=== PATIENT | male | born 1950 | race Caucasian/White ===

== ENCOUNTER 2020-01-20 00:42 | Outpatient (CLI) | payer MEDICARE, SELFPAY ==
[2020-01-20 17:34] LABS: SARS-CoV-2 RNA PCR Negative
== END 2020-01-20 00:43 | disposition home or self-care (01) ==
LOC: ANHCOVIDDT 00:42
PROVIDERS: PCP Internal Medicine; Visit Provider Internal Medicine Gastroenterology
DX: Z01.818 Encounter for other preprocedural examination (principal); Z11.59 Encounter for screening for other viral diseases
CPT/HCPCS: 87635; C9803; U0003

== ENCOUNTER 2020-01-22 01:07 | Day surgery (SDC) | payer MEDICARE, SELFPAY ==
[2020-01-14 14:59] VITALS: BMI 31.8
[2020-01-22 07:58] VITALS: BP 167/75; PULSE 58; RESP 18; TEMP 36.4; O2SAT 100
[2020-01-22] MEDS: LACTATED RINGERS 1,000 ML 150 ML IV CONT (08:10)
--- NOTE | 2020-01-22 08:24 | P.PNAN_ITS ---
Anes - Initial Pre Proc Eval Procedure: Operation Date: 01/22/20 09:00 Proposed Procedures p Screening Colonoscopy - Abner Tillman MD Date/Time: 01/22/20 08:24 Surgeon: Abner Tillman MD Pre Op Diagnosis: Hx Colon Polyps Patient Data Age: 69 Gender: M Height: 1.75 m Weight: 96.4 kg Last Vital Signs Temp 36.4 C 01/22/20 07:58 Pulse 58 L 01/22/20 07:58 Resp 18 01/22/20 07:58 BP 167/75 H 01/22/20 07:58 Pulse Ox 100 01/22/20 07:58 Allergies Allergy/AdvReac Type Severity Reaction Status Date / Time No Known Allergies Allergy Mild Unverified 01/22/20 07:57 Home Medications Medication Instructions Recorded Confirmed Type losartan 50 mg tablet 50 mg PO DAILY #90 tablet 11/23/19 01/22/20 Rx naproxen sodium 220 mg PO BID 01/14/20 01/22/20 History Patient hx anesthesia problems: none Family hx anesthesia problems: none [facility] Past Medical History Medical History (Updated 01/21/20 @ 10:54 by Sheldon Ibrahim DO) Elevated liver enzymes Hypertension Sleep apnea CPAP Family History Family History (Updated 12/08/19 @ 10:05 by Rochelle Chau CMA) Father Family history of arthritis Diabetes mellitus Hypertension CHF (congestive heart failure) Family history of Alzheimer's disease Mother Family history of arthritis Family history of malignant neoplasm Diabetes mellitus, Onset Age: 79 Hypertension, Onset Age: 79 Social History Social History (Updated 12/08/19 @ 10:05 by Rochelle Chau [facility]) Smoking status: Never smoker Alcohol intake: current Substance use: never Gender identity (if verbalized by the patient): Male Sexual Orientation (if Verbalized by the Patient): Straight or Heterosexual Anes - Eval Final PreProcedure Day of Procedure 01/22/20 08:24 Patient weight: obese Heart: regular rate and rhythm Lungs: clear to auscultation and normal air movement Airway: Mallampati scale class III Neurological: alert and oriented Last oral intake: >/= 8 hours ASA classification: III Emergent: no Anesthetic plan: proceed Anesthesia type and monitoring: general GIVS and standard monitoring Informed Consent: The patient's anesthetic plan and its attendant risks and benefits were discussed with the patient/family/POA. Questions were solicited and answers provided to the satisfaction of the patient/family/POA.
--- NOTE | 2020-01-22 08:44 | WPDGICN ---
Assessment and Plan Assessment and plan (1) History of colon polyps: Code(s): Z86.010 - Personal history of colonic polyps Status: Acute Assessment and Plan: Screening colonoscopy advised because of patient's age patient also gives a he distant history of colon polyps. Plans for screening colonoscopy further recommendations will be given after endoscopy. GI Consult Note Consult date/time: 01/22/20 08:44 HPI: Abner Giang is a 69 year old male Seen in evaluation at the request of Dr. Syed. Patient has a history of colon polyps identified by colonoscopy 12 years ago. Most recent colonoscopy tender 11 years ago was unremarkable. His current weight appetite bowel movements are normal. He denies abdominal pain he has had no bleeding. Family history is noncontributory. Review of Systems Review of Systems: All systems reviewed & are unremarkable except as noted in HPI and below PMFSH Past Medical History Medical History Elevated liver enzymes Hypertension Sleep apnea CPAP Family History Family History Father Family history of arthritis Diabetes mellitus Hypertension CHF (congestive heart failure) Family history of Alzheimer's disease Mother Family history of arthritis Family history of malignant neoplasm Diabetes mellitus, Onset Age: 79 Hypertension, Onset Age: 79 Social History Social History Smoking status: Never smoker Alcohol intake: current Substance use: never Gender identity (if verbalized by the patient): Male Sexual Orientation (if Verbalized by the Patient): Straight or Heterosexual Meds Home Medications and Allergies Home Medications Medication Instructions Recorded Confirmed Type losartan 50 mg tablet 50 mg PO DAILY #90 tablet 11/23/19 01/22/20 Rx naproxen sodium 220 mg PO BID 01/14/20 01/22/20 History Allergies Allergy/AdvReac Type Severity Reaction Status Date / Time No Known Allergies Allergy Mild Unverified 01/22/20 07:57 Vital Signs Vital Signs - 24 hr 01/22/20 07:58 Temperature 36.4 C Pulse Rate 58 L Respiratory Rate 18 Blood Pressure 167/75 H Pulse Oximetry 100 Exam Narrative: Exam Narrative: Physical exam reveals patient to be alert. Vital signs stable. HEENT exam unremarkable. Lungs are clear to auscultation and percussion. Heart is without murmur or extra sounds. Abdominal exam bowel sounds are present soft nontender with no organomegaly. Digital external rectal exam normal.
[2020-01-22 09:48] VITALS: BP 132/65; PULSE 63; RESP 14; O2SAT 96
[2020-01-22 09:58] VITALS: BP 127/77; PULSE 64; RESP 14; O2SAT 96
[2020-01-22 10:08] VITALS: BP 137/74; PULSE 61; RESP 14; O2SAT 96
== END 2020-01-22 10:32 | disposition home or self-care (01) ==
PROVIDERS: PCP Internal Medicine; Visit Provider Internal Medicine Gastroenterology
PROC: 0DJD8ZZ Inspection of Lower Intestinal Tract, Via Natural or Artificial Opening Endoscopic (ICD-10-PCS; CPT 45378; principal; 2020-01-22 09:00)
DX: Z12.11 Encounter for screening for malignant neoplasm of colon (principal); K57.30 Diverticulosis of large intestine without perforation or abscess without bleeding; K64.8 Other hemorrhoids; Z86.010 Personal history of colon polyps; I10 Essential (primary) hypertension
CPT/HCPCS: G0105; 87635; C9803; J2704; J7120; U0003

== ENCOUNTER 2021-03-10 08:41 | Outpatient (CLI) | payer MEDICARE, SELFPAY ==
--- NOTE | ~2021-03-10 | US_ITS ---
EXAMINATION: US abdomen limited DATE: 03/10/2021 09:33 INDICATION: Right upper quadrant abdominal pain. TECHNIQUE: Multiple grayscale and Doppler ultrasound images of the abdomen were obtained. COMPARISON: None FINDINGS: The visualized portions of the head, body, and tail of the pancreas are normal. The liver i s normal without focal lesion. No liver surface nodularity. There is normal flow in main portal vein. The gallbladder is contracted and contains polyps measuring up to 6 mm, likely benign cholesterol po lyps that need no follow-up. No definite gallstones. There was no sonographic Hoang sign. The common duct is normal and measures 3 mm. IMPRESSION: 1. No etiology for the patient's symptoms. Reviewed, dictated and finalized at location A.
== END 2021-03-10 08:42 | disposition home or self-care (01) ==
LOC: ANHIMG 08:41
PROVIDERS: PCP Internal Medicine; Visit Provider Nurse Practitioner
DX: R10.11 Right upper quadrant pain (principal)
CPT/HCPCS: 76705

== ENCOUNTER 2021-03-17 09:48 | Outpatient (CLI) | payer MEDICARE, SELFPAY ==
--- NOTE | ~2021-03-17 | NM_ITS ---
EXAMINATION: NM hepatobiliary wo pharm DATE: 03/17/2021 13:34 INDICATION: Right upper quadrant abdominal pain. COMPARISON: Ultrasound 03/10/2021 TECHNIQUE: 4.7 mCi Tc-99m mebrofenin (Choletec) was administered intravenously. Scintigraphic images of the abdomen were obtained for one hour. Delayed images were obtained at 4 hours. FINDINGS: There is normal clearance of radiotracer from the blood pool. There is homogeneous tracer u ptake by the liver. Activity progresses to the bowel by 15 minutes. There is activity in the gallbla dder at 4 hours. IMPRESSION: 1. No evidence of acute cholecystitis. Reviewed, dictated and finalized at location B.
== END 2021-03-17 09:49 | disposition home or self-care (01) ==
LOC: ANHIMG 09:52
PROVIDERS: PCP Internal Medicine; Visit Provider Internal Medicine
DX: R10.11 Right upper quadrant pain (principal)
CPT/HCPCS: 78226; A9537

== ENCOUNTER 2023-01-11 11:24 | Outpatient (CLI) | payer MEDICARE, SELFPAY ==
[2023-01-11 16:30] LABS: Basophils Percent Auto 0.8 % (0.2-1.2); Eosinophils Absolute Auto 0.1 K/mm3 (0-0.3); Eosinophils Percent Auto 2.3 % (0-4.4); Hematocrit 45.3 % (42.0-52.0); Hemoglobin 14.3 g/dL (14.0-18.0); Immature Granulocyte Absolute 0.01 K/mm3 (0.00-0.031); Immature Granulocyte Percent A 0.2 % (0-0.5); Lymphocytes Absolute Auto 1.88 K/mm3 (0.9-3.2); Lymphocytes Percent Auto 35.7 % (18.3-44.2); Mean Corpuscular HGB Conc 31.6 g/dl (32-36); Mean Corpuscular Hemoglobin 29.1 pg (26-34); Mean Corpuscular Volume 92.1 fl (80-100); Mean Platelet Volume 11.1 fl (7.4-10.4); Monocytes Absolute Auto 0.4 K/mm3 (0.1-0.6); Neutrophils Absolute Auto 2.8 K/mm3 (1.3-6.7); Platelet Count Result 189 k/mm3 (150-375); Red Blood Count 4.92 M/mm3 (4.6-6.20); Red Cell Distribution Width 14.2 % (11.5-14.5); White Blood Count 5.3 K/mm3 (4.5-10.0)
[2023-01-11 16:43] LABS: Alanine Aminotransferase 32 U/L (6-50); Albumin Level 4.3 g/dL (3.5-5.1); Alkaline Phosphatase 68 U/L (38-126); Anion Gap 6 mmol/L (8-16); Aspartate Amino Transferase 45 U/L (17-59); Bilirubin,Total 0.7 mg/dL (0.2-1.3); Blood Urea Nitrogen 22 mg/dL (9-20); Calcium 8.6 mg/dL (8.4-10.2); Carbon Dioxide 27 mmol/L (22-30); Chloride 111 mmol/L (98-107); Cholesterol 110 mg/dL (0-200); Estimated Glomerular Filt Rate > 60; Glucose 100 mg/dL (65-110); HDL Direct 28 mg/dL; Potassium 4.4 mmol/L (3.4-5.0); Sodium 144 mmol/L (137-145); Triglycerides 185 mg/dL (<150)
[2023-01-11 16:56] LABS: LDL Cholesterol Direct 58 mg/dL
[2023-01-11 17:03] LABS: Microalbumin Urine Random 12.4 mg/L (0-16.7)
[2023-01-11 17:05] LABS: Creatinine Urine 155.7 mg/dL
[2023-01-11 17:12] LABS: Prostate Specific Antigen 1.4 ng/mL (< OR = 4.0)
== END 2023-01-11 11:25 | disposition home or self-care (01) ==
LOC: ANHGOSHLAB 11:26
PROVIDERS: PCP Internal Medicine; Visit Provider Nurse Practitioner
DX: E78.5 Hyperlipidemia, unspecified (principal); Z12.5 Encounter for screening for malignant neoplasm of prostate; I10 Essential (primary) hypertension; Z13.29 Encounter for screening for other suspected endocrine disorder
CPT/HCPCS: 36415; 80053; 80061; 82043; 84153; 85025; G0103

== ENCOUNTER 2024-03-19 11:19 | Outpatient (CLI) | payer MEDICARE, SELFPAY ==
[2024-03-19 13:32] LABS: Basophils Percent Auto 0.3 % (0.2-1.2); Eosinophils Absolute Auto 0.1 K/mm3 (0-0.3); Eosinophils Percent Auto 1.6 % (0-4.4); Hematocrit 43.5 % (42.0-52.0); Hemoglobin 13.5 g/dL (14.0-18.0); Immature Granulocyte Absolute 0.01 K/mm3 (0.00-0.031); Immature Granulocyte Percent A 0.2 % (0-0.5); Lymphocytes Absolute Auto 1.54 K/mm3 (0.9-3.2); Lymphocytes Percent Auto 24.6 % (18.3-44.2); Mean Corpuscular Volume 93.3 fl (80-100); Mean Platelet Volume 10.8 fl (7.4-10.4); Monocytes Absolute Auto 0.5 K/mm3 (0.1-0.6); Monocytes Percent Auto 7.2 % (2.6-8.5); Neutrophils Absolute Auto 4.1 K/mm3 (1.3-6.7); Neutrophils Percent Auto 66.1 % (45.5-73.1); Platelet Count Result 199 k/mm3 (150-375); Red Blood Count 4.66 M/mm3 (4.6-6.20); Red Cell Distribution Width 13.7 % (11.5-14.5); White Blood Count 6.3 K/mm3 (4.5-10.0)
[2024-03-19 14:09] LABS: Alanine Aminotransferase 23 U/L (6-50); Albumin Level 4.1 g/dL (3.5-5.1); Alkaline Phosphatase 59 U/L (38-126); Anion Gap 7 mmol/L (4-12); Aspartate Amino Transferase 44 U/L (17-59); Bilirubin,Total 0.8 mg/dL (0.2-1.3); Blood Urea Nitrogen 19 mg/dL (9-20); Calcium 8.7 mg/dL (8.4-10.2); Carbon Dioxide 29 mmol/L (22-30); Chloride 105 mmol/L (98-107); Cholesterol 127 mg/dL (0-200); Estimated Glomerular Filt Rate > 60; Glucose 101 mg/dL (65-110); HDL Direct 30 mg/dL; Sodium 141 mmol/L (137-145); Triglycerides 203 mg/dL (<150)
[2024-03-19 14:20] LABS: LDL Cholesterol Direct 60 mg/dL
[2024-03-19 14:40] LABS: Prostate Specific Antigen 1.8 ng/mL (< OR = 4.0)
== END 2024-03-19 11:20 | disposition home or self-care (01) ==
LOC: ANHGOSHLAB 11:20
PROVIDERS: PCP Internal Medicine; Visit Provider Nurse Practitioner
DX: E78.5 Hyperlipidemia, unspecified (principal); I10 Essential (primary) hypertension; Z12.5 Encounter for screening for malignant neoplasm of prostate; Z13.228 Encounter for screening for other metabolic disorders
CPT/HCPCS: 36415; 80053; 80061; 84153; 85025; G0103

== ENCOUNTER 2024-11-11 00:20 | Day surgery (SDC) | payer MEDICARE, SELFPAY ==
[2024-11-10 08:44] VITALS: BMI 27.8
[2024-11-11 06:48] VITALS: BMI 27.1
[2024-11-11 06:50] VITALS: BP 158/79; PULSE 78; RESP 20; TEMP 36.3; O2SAT 99
[2024-11-11] MEDS: LACTATED RINGERS 1,000 ML 150 ML IV CONT (06:51)
--- NOTE | 2024-11-11 07:28 | WPDANESEPPF ---
Anes - Initial Pre Proc Eval Procedure: Operation Date: 11/11/24 08:00 Proposed Procedures p Screening Colonoscopy - Derek Ayoub MD Date/Time: 11/11/24 07:28 Surgeon: Derek Ayoub MD Pre Op Diagnosis: Hx of polyps Patient Data Age: 74 Gender: M Height: 1.73 m Weight: 81 kg Last Vital Signs Temp 36.3 C L 11/11/24 06:50 Pulse 78 11/11/24 06:50 Resp 20 11/11/24 06:50 BP 158/79 H 11/11/24 06:50 Pulse Ox 99 11/11/24 06:50 O2 Del Method Room Air 11/11/24 06:50 Allergies Allergy/AdvReac Type Severity Reaction Status Date / Time No Known Allergies Allergy Mild Verified 11/11/24 06:44 Home Medications ?Medication ?Instructions ?Recorded ?Confirmed ?Type ascorbic acid (vitamin C) 100 mg PO DAILY 12/08/20 11/11/24 History aspirin 81 mg tablet,delayed 81 mg PO DAILY 12/08/20 11/11/24 History release cetirizine 10 mg capsule (Zyrtec) 10 mg PO DAILY PRN Allergies 12/08/20 11/10/24 History multivitamin 1 tablet PO DAILY 12/08/20 11/11/24 History vitamin B complex (B 1 tablet PO DAILY 12/08/20 11/11/24 History Complex-Vitamin B12 tablet) omeprazole magnesium 20 mg 20 mg PO DAILY 12/20/21 11/11/24 History tablet,delayed release ibuprofen 200 mg tablet 400 mg PO BID 01/08/23 11/10/24 History naproxen sodium 220 mg capsule 220 mg PO DAILY 01/08/23 11/11/24 History atorvastatin 10 mg tablet See Rx Instructions .Route 09/24/24 11/11/24 Rx .COMPLEX #90 tabs losartan 50 mg tablet See Rx Instructions .Route 10/19/24 11/11/24 Rx .COMPLEX #90 tabs Patient hx anesthesia problems: none Family hx anesthesia problems: none Results Review: All pre-operative results and documents have been reviewed as part of the pre-operative evaluation. [facility] Past Medical History Medical History Obesity Hypertension Sleep apnea CPAP Elevated liver enzymes Surgical History Surgical History H/O wrist surgery (~1997) History of elbow surgery left 1989' History of carpal tunnel release History of back surgery (~2007) lumbar back surgery x 2 History of shoulder surgery (~2022) right x4 H/O hernia repair (~2009) x2 History of knee surgery (~2019) left knee x4 H/O neck surgery (~1999) Family History Family History Father Family history of arthritis Diabetes mellitus Hypertension CHF (congestive heart failure) Family history of Alzheimer's disease Mother Family history of arthritis Family history of malignant neoplasm Diabetes mellitus, Onset Age: 79 Hypertension, Onset Age: 79 Social History Social History Smoking status: Never smoker Alcohol intake: current Alcohol use details: rarely Substance use: never Do You Feel Safe in your Home?: Yes Lack of Transportation: No Lack of Food: Never True Current Housing: I Have Housing Concerned About Future Housing: No Difficulty Paying Gas/Electric Bills: No Difficulty Paying for Meds: No Currently Unemployed: No Education: Bachelor's Degree Difficulty w/ Childcare or Family Care: No Living arrangements: with family Gender identity (if verbalized by the patient): Male Sexual Orientation (if Verbalized by the Patient): Straight or Heterosexual Spiritual care concerns: No Anes - Eval Final PreProcedure Day of Procedure 11/11/24 07:28 Patient weight: overweight Heart: regular rate and rhythm Lungs: clear to auscultation Airway: Mallampati scale class IV and special considerations poor opening Neurological: alert and oriented Last oral intake: >/= 8 hours ASA classification: III Emergent: no Anesthetic plan: proceed Anesthesia type and monitoring: general GIVS and standard monitoring Results Review: All pre-operative results and documents have been reviewed as part of the pre-operative evaluation. Informed Consent: The patient's anesthetic plan and its attendant risks and benefits were discussed with the patient/family/POA. Questions were solicited and answers provided to the satisfaction of the patient/family/POA.
--- NOTE | 2024-11-11 07:59 | PM.HPGS ---
History of Present Illness History of Present Illness Consent: Risks, benefits, and alternatives have been discussed and questions answered. Patient agrees to proceed with procedure. Chief complaint: Hx of polyps Narrative: Abner Giang is a 74 year old male with last colonoscopy 2019, had polyps in the past Review of Systems Review of Systems: All systems reviewed & are unremarkable except as noted in HPI and below PMFSH Past Medical History Medical History Obesity Hypertension Sleep apnea CPAP Elevated liver enzymes Surgical History Surgical History H/O wrist surgery (~1997) History of elbow surgery left 1989' History of carpal tunnel release 1989' History of back surgery (~2007) lumbar back surgery x 2 History of shoulder surgery (~2022) right x4 H/O hernia repair (~2009) x2 History of knee surgery (~2019) left knee x4 H/O neck surgery (~1999) Family History Family History Father Family history of arthritis Diabetes mellitus Hypertension CHF (congestive heart failure) Family history of Alzheimer's disease Mother Family history of arthritis Family history of malignant neoplasm Diabetes mellitus, Onset Age: 79 Hypertension, Onset Age: 79 Social History Social History Smoking status: Never smoker Alcohol intake: current Alcohol use details: rarely Substance use: never Do You Feel Safe in your Home?: Yes Lack of Transportation: No Lack of Food: Never True Current Housing: I Have Housing Concerned About Future Housing: No Difficulty Paying Gas/Electric Bills: No Difficulty Paying for Meds: No Currently Unemployed: No Education: Bachelor's Degree Difficulty w/ Childcare or Family Care: No Living arrangements: with family Gender identity (if verbalized by the patient): Male Sexual Orientation (if Verbalized by the Patient): Straight or Heterosexual Spiritual care concerns: No Meds Home Medications and Allergies Home Medications ?Medication ?Instructions ?Recorded ?Confirmed ?Type ascorbic acid (vitamin C) 100 mg PO DAILY 12/08/20 11/11/24 History aspirin 81 mg tablet,delayed 81 mg PO DAILY 12/08/20 11/11/24 History release cetirizine 10 mg capsule (Zyrtec) 10 mg PO DAILY PRN Allergies 12/08/20 11/10/24 History multivitamin 1 tablet PO DAILY 12/08/20 11/11/24 History vitamin B complex (B 1 tablet PO DAILY 12/08/20 11/11/24 History Complex-Vitamin B12 tablet) omeprazole magnesium 20 mg 20 mg PO DAILY 12/20/21 11/11/24 History tablet,delayed release ibuprofen 200 mg tablet 400 mg PO BID 01/08/23 11/10/24 History naproxen sodium 220 mg capsule 220 mg PO DAILY 01/08/23 11/11/24 History atorvastatin 10 mg tablet See Rx Instructions .Route 09/24/24 11/11/24 Rx .COMPLEX #90 tabs losartan 50 mg tablet See Rx Instructions .Route 10/19/24 11/11/24 Rx .COMPLEX #90 tabs Allergies Allergy/AdvReac Type Severity Reaction Status Date / Time No Known Allergies Allergy Mild Verified 11/11/24 06:44 Vital Signs Vital Signs - 24 hr 11/11/24 06:50 Temperature 97.3 F L Pulse Rate 78 Respiratory Rate 20 Blood Pressure 158/79 H Pulse Oximetry 99 Oxygen Delivery Room Air Exam Const: General: comfortable and no acute distress HENMT: Face/Nose/Sinus: Normal nares present Eyes: General: appearance normal, both eyes and all related structures Neck: Neck: no JVD Resp: Auscultation: clear to auscultation bilaterally Cardio: Rate: regular rate Rhythm: regular rhythm GI: Inspection: non-distended GI Palp: Yes Soft to palpation Skin: General skin exam: normal color Neuro: General: gait normal Speech: normal speech Extrem: General: normal to inspection Psych: Mental Status: mental status grossly normal Assessment and Plan Assessment and plan (1) History of colon polyps: Code(s): Z86.010 - Personal history of colon polyps Status: Acute Assessment and Plan: colonoscopy
[2024-11-11 08:22] VITALS: BP 101/57; PULSE 65; RESP 12; O2SAT 98
[2024-11-11 08:32] VITALS: BP 110/60; PULSE 62; RESP 13; O2SAT 97
[2024-11-11 08:42] VITALS: BP 140/71; PULSE 64; RESP 14; O2SAT 98
== END 2024-11-11 08:49 | disposition home or self-care (01) ==
PROVIDERS: PCP Internal Medicine; Referring Provider Physician Assistant; Visit Provider Internal Medicine Gastroenterology
PROC: 0DJD8ZZ Inspection of Lower Intestinal Tract, Via Natural or Artificial Opening Endoscopic (ICD-10-PCS; CPT 45378; principal; 2024-11-11 08:00)
DX: Z12.11 Encounter for screening for malignant neoplasm of colon (principal); K63.5 Polyp of colon; K57.30 Diverticulosis of large intestine without perforation or abscess without bleeding; K64.8 Other hemorrhoids
CPT/HCPCS: 45380; 88305; J2003; J2704; J7120

== ENCOUNTER 2025-02-23 15:59 | Emergency (ER) | payer MEDICARE, SELFPAY ==
--- NOTE | 2025-02-23 16:01 | ED_ITS ---
HPI - Eye Problem General Stated complaint: Clogged Ear Source: patient and RN notes reviewed Mode of arrival: ambulatory Limitations: no limitations Related Data Home Medications ?Medication ?Instructions ?Recorded ?Confirmed ?Last Taken ?Type ascorbic acid (vitamin C) 100 mg PO DAILY 12/08/20 11/11/24 11/10/24 History aspirin 81 mg tablet,delayed 81 mg PO DAILY 12/08/20 11/11/24 11/10/24 History release cetirizine 10 mg capsule (Zyrtec) 10 mg PO DAILY PRN Allergies 12/08/20 11/10/24 Unknown History multivitamin 1 tablet PO DAILY 12/08/20 11/11/24 11/10/24 History vitamin B complex (B 1 tablet PO DAILY 12/08/20 11/11/24 11/10/24 History Complex-Vitamin B12 tablet) omeprazole magnesium 20 mg 20 mg PO DAILY 12/20/21 11/11/24 11/10/24 History tablet,delayed release ibuprofen 200 mg tablet 400 mg PO BID 01/08/23 11/10/24 Unknown History naproxen sodium 220 mg capsule 220 mg PO DAILY 01/08/23 11/11/24 11/10/24 History Allergies Allergy/AdvReac Type Severity Reaction Status Date / Time No Known Allergies Allergy Mild Verified 11/11/24 06:44 Review of Systems Review of Systems: CONSTITUTIONAL: Denies malaise, chills, sweats, or fever. EYES: Denies visual changes. Reports redness, irritation, discharge. ENT: Denies rhinorrhea, congestion, sinus pain, otalgia or sore throat. SKIN: Denies rash or itching. NEUROLOGIC: Denies numbness, weakness, or headache. PSYCHIATRIC: Denies anxiety or depression. All systems reviewed & are unremarkable except as noted in HPI and below PMFSH Past Medical History Medical History Obesity Hypertension Sleep apnea CPAP Elevated liver enzymes Surgical History Surgical History H/O wrist surgery (~1997) History of elbow surgery left 1989' History of carpal tunnel release 1989' History of back surgery (~2007) lumbar back surgery x 2 History of shoulder surgery (~2022) right x4 H/O hernia repair (~2009) x2 History of knee surgery (~2019) left knee x4 H/O neck surgery (~1999) Family History Family History Father Family history of arthritis Diabetes mellitus Hypertension CHF (congestive heart failure) Family history of Alzheimer's disease Mother Family history of arthritis Family history of malignant neoplasm Diabetes mellitus, Onset Age: 79 Hypertension, Onset Age: 79 Social History Social History Smoking status: Never smoker Alcohol intake: current Alcohol use details: rarely Substance use: never Do You Feel Safe in your Home?: Yes Lack of Transportation: No Lack of Food: Never True Current Housing: I Have Housing Concerned About Future Housing: No Difficulty Paying Gas/Electric Bills: No Difficulty Paying for Meds: No Currently Unemployed: No Education: Bachelor's Degree Difficulty w/ Childcare or Family Care: No Living arrangements: with family Gender identity (if verbalized by the patient): Male Sexual Orientation (if Verbalized by the Patient): Straight or Heterosexual Spiritual care concerns: No Comments At time of signature, agree with nursing past medical, surgical, social and family history. There is no relevant family history pertinent to the presenting complaint Exam Narrative: GENERAL: Well-appearing, well-nourished, and in no acute distress. HEAD: Normocephalic, atraumatic. EYES: PERRLA, sclera clear, and EOMI. No nystagmus. Bilateral conjunctivae injected. Upper and lower eyelid unremarkable, no periorbital edema noted ENT: Nares clear, turbinates pink, no rhinorrhea or epistaxis. Mucous membranes moist. TM pearly ceja with sharp light reflex bilaterally; no tragal tenderness. NECK: Supple. CHEST: No respiratory distress. Speaks in full sentences. HEART: Regular rate and rhythm. SKIN: Warm, dry, no visible rash. NEURO: Alert and oriented x3. PSYCH: Normal mood and affect Course Course Emergency Course: Patient is aware of diagnosis, understands and agrees to treatment plan. Antic ipatory guidance given. Patient agrees to follow-up as directed and is aware of reasons to seek care at the emergency department. Portions of this record may have been created with voice recognition software Level of Care: Express Care Visit Vital Signs Vital signs: Reviewed. [facility] - Eye Problem MDM Narrative Medical decision making narrative: Consideration of the following conditions may be warranted for the presenting problem, they are not final diagnoses: Bacterial conjunctivitis, allergic conjunctivitis, viral conjunctivitis, foreign body, blepharitis, chalazion, hordeolum, corneal abrasion, preseptal cellulitis, orbital cellulitis. No evidence of proptosis, ophthalmoplegia, vision loss, pain with eye movement. Exam findings show no acute concerns or changes; patient is non-toxic appearing and is in no distress. Patient is appropriate for outpatient treatment and follow-up. Critical Care Time Critical Care Time Critical Care Time: No Discharge Plan Discharge Patient Language: Spanish Prescriptions: No Action ascorbic acid (vitamin C) Granules 100 mg PO DAILY vitamin B complex [B Complex-Vitamin B12] Tablet 1 tablet PO DAILY multivitamin Tablet 1 tablet PO DAILY Zyrtec 10 mg capsule 10 mg PO DAILY PRN (Reason: Allergies) aspirin 81 mg tablet,delayed release (DR/EC) 81 mg PO DAILY ibuprofen 200 mg tablet 400 mg PO BID omeprazole magnesium 20 mg tablet,delayed release (DR/EC) 20 mg PO DAILY atorvastatin 10 mg tablet See Rx Instructions .ROUTE .COMPLEX Qty: 90 3RF Dose Instruction: TAKE 1 TABLET BY MOUTH EVERY NIGHT AT BEDTIME Rx Instructions: TAKE 1 TABLET BY MOUTH EVERY NIGHT AT BEDTIME naproxen sodium 220 mg capsule 220 mg PO DAILY losartan 50 mg tablet See Rx Instructions .ROUTE .COMPLEX Qty: 90 1RF Dose Instruction: TAKE 1 TABLET BY MOUTH DAILY Rx Instructions: TAKE 1 TABLET BY MOUTH DAILY Follow-up/Referrals: Khurram Syed, [Primary Care Provider] -
[2025-02-23 16:13] VITALS: BP 150/68; PULSE 69; RESP 16; TEMP 36.6; O2SAT 99
--- NOTE | 2025-02-23 16:24 | ED.EAR ---
HPI - Ear Problem General Chief complaint: Ear Stated complaint: Clogged Ear Time Seen by Provider: 02/23/25 16:25 Source: patient and RN notes reviewed Mode of arrival: ambulatory Limitations: no limitations History of Present Illness HPI Narrative: 74-year-old male presents with concern for low right ear fullness, decreased hearing. He reports several days of symptoms. He reports he has had a month long history of sinus congestion and drainage. He denies fever, aches, chills, sweats. Denies drainage from the ear. MD Complaint: ear pain Related Data Home Medications ?Medication ?Instructions ?Recorded ?Confirmed ?Last Taken ?Type ascorbic acid (vitamin C) 100 mg PO DAILY 12/08/20 11/11/24 11/10/24 History aspirin 81 mg tablet,delayed 81 mg PO DAILY 12/08/20 11/11/24 11/10/24 History release cetirizine 10 mg capsule (Zyrtec) 10 mg PO DAILY PRN Allergies 12/08/20 11/10/24 Unknown History multivitamin 1 tablet PO DAILY 12/08/20 11/11/24 11/10/24 History vitamin B complex (B 1 tablet PO DAILY 12/08/20 11/11/24 11/10/24 History Complex-Vitamin B12 tablet) omeprazole magnesium 20 mg 20 mg PO DAILY 12/20/21 11/11/24 11/10/24 History tablet,delayed release ibuprofen 200 mg tablet 400 mg PO BID 01/08/23 11/10/24 Unknown History naproxen sodium 220 mg capsule 220 mg PO DAILY 01/08/23 11/11/24 11/10/24 History fluconazole 100 mg tablet mg 02/23/25 Unknown History lorazepam 0.5 mg tablet mg 02/23/25 Unknown History prochlorperazine maleate 10 mg mg 02/23/25 Unknown History tablet Allergies Allergy/AdvReac Type Severity Reaction Status Date / Time No Known Allergies Allergy Mild Verified 02/23/25 16:03 Review of Systems Review of Systems: CONSTITUTIONAL: Denies malaise, chills, sweats, or fever. EYES: Denies visual changes, redness, or discharge. ENT: Reports rhinorrhea, congestion. Denies sinus pain and sore throat. Reports right ear fullness, decreased hearing CARDIOVASCULAR: Denies chest pain, palpitations, or edema. RESPIRATORY: Denies cough. Denies dyspnea. GASTROINTESTINAL: Denies abdominal pain, nausea, vomiting, diarrhea SKIN: Denies rash or itching. MUSCULOSKELETAL: Denies myalgia. NEUROLOGIC: Denies headache. All systems reviewed & are unremarkable except as noted in HPI and below PMFSH Past Medical History Medical History Obesity Hypertension Sleep apnea CPAP Elevated liver enzymes Surgical History Surgical History H/O wrist surgery (~1997) History of elbow surgery left History of carpal tunnel release History of back surgery (~2007) lumbar back surgery x 2 History of shoulder surgery (~2022) right x4 H/O hernia repair (~2009) x2 History of knee surgery (~2019) left knee x4 H/O neck surgery (~1999) Family History Family History Father Family history of arthritis Diabetes mellitus Hypertension CHF (congestive heart failure) Family history of Alzheimer's disease Mother Family history of arthritis Family history of malignant neoplasm Diabetes mellitus, Onset Age: 79 Hypertension, Onset Age: 79 Social History Social History Smoking status: Never smoker Alcohol intake: current Alcohol use details: rarely Substance use: never Do You Feel Safe in your Home?: Yes Lack of Transportation: No Lack of Food: Never True Current Housing: I Have Housing Concerned About Future Housing: No Difficulty Paying Gas/Electric Bills: No Difficulty Paying for Meds: No Currently Unemployed: No Education: Bachelor's Degree Difficulty w/ Childcare or Family Care: No Living arrangements: with family Gender identity (if verbalized by the patient): Male Sexual Orientation (if Verbalized by the Patient): Straight or Heterosexual Spiritual care concerns: No Comments At time of signature, agree with nursing past medical, surgical, social and family history. There is no relevant family history pertinent to the presenting complaint Exam Narrative: GENERAL: Well-appearing, well-nourished, and in no acute distress. HEAD: Normocephalic EYES: PERRLA, conjunctivae clear ENT: Nares clear, turbinates edematous, clear discharge. Mucous membranes moist. Left TM pearly ceja with sharp light reflex, right TM erythematous and bulging; no tragal tenderness, EAC unremarkable with no wax buildup. No post or pre-auricular erythema, induration, or warmth noted. Oropharynx not erythematous without lesions. Tonsils not enlarged and without exudate, no drooling, no hoarseness, no trismus, uvula midline. NECK: Supple. No lymphadenopathy CHEST: Clear to auscultation, breath sounds equal. No wheezing, rhonchi, rales, or stridor. No respiratory distress, speaks in full sentences. HEART: Regular rate and rhythm. No murmur heard. SKIN: Warm, dry, no rash. NEURO: Alert and oriented x3. PSYCH: Normal mood and affect Course Course Emergency Course: Patient is aware of diagnosis, understands and agrees to treatment plan. Anticipatory guidance given. Patient agrees to follow-up as directed and is aware of reasons to seek care at the emergency department. Portions of this record may have been created with voice recognition software Level of Care: Express Care Visit Vital Signs Vital signs: Vital Signs Temperature 98 F 02/23/25 16:13 Pulse Rate 69 02/23/25 16:13 Respiratory Rate 16 02/23/25 16:13 Blood Pressure 150/68 H 02/23/25 16:13 Pulse Oximetry 99 02/23/25 16:13 Temperature 98 F 02/23/25 16:13 Pulse Rate 69 02/23/25 16:13 Respiratory Rate 16 02/23/25 16:13 Blood Pressure 150/68 H 02/23/25 16:13 Pulse Oximetry 99 02/23/25 16:13 Reviewed. Medical Decision Making MDM Narrative Medical decision making narrative: I evaluated this in the [facility] care. History is obtained from patient who is an independent historian and physical exam was performed.? Available medical records were reviewed. ? Exam findings and relevant testing show no acute concerns or changes; patient is non-toxic appearing and is in no distress. Differential diagnosis considered: Art virus, strep pharyngitis, allergic rhinitis, upper respiratory tract infection, sinusitis, rhinosinusitis, nasopharyngitis. viral pharyngitis, otitis media, otitis externa, otitis effusion, pre/post auricular cellulitis, mastoiditis, cerumen impaction, foreign body. Exam findings show no acute concerns or changes; patient is non-toxic appearing and is in no distress. Patient is appropriate for outpatient treatment and follow-up. ? Differential diagnosis and treatment plan were discussed with the patient. Patient agrees with discussion and after shared medical decision making agrees with plan of care. All questions were answered to the patient's satisfaction. Patient is appropriate for outpatient treatment and follow-up. Vital Signs Vital Signs: Vital Signs Temperature 98 F 02/23/25 16:13 Pulse Rate 69 02/23/25 16:13 Respiratory Rate 16 02/23/25 16:13 Blood Pressure 150/68 H 02/23/25 16:13 Pulse Oximetry 99 02/23/25 16:13 Temperature 98 F 02/23/25 16:13 Pulse Rate 69 02/23/25 16:13 Respiratory Rate 16 02/23/25 16:13 Blood Pressure 150/68 H 02/23/25 16:13 Pulse Oximetry 99 02/23/25 16:13 Critical Care Time Critical Care Time Critical Care Time: No Discharge Plan Discharge Clinical Impression: Otitis media, Sinusitis Patient Disposition: Home Condition: Stable Instructions: Antibiotic Form, Sinusitis (ED), Ear Infection (ED) Additional Instructions: Take antibiotics as directed. Recommend antihistamine such as Benadryl at night time and Zyrtec or Gayathri during the day until symptoms improve Pseudoephedrine per package directions Flonase nasal spray, 2 sprays in each nostril once daily until symptoms improve Also, recommend symptomatic treatment includes: rest, fluids, and increase humidity of the air at home. Recommend Acetaminophen as directed on the bottle to reduce fever, pain Please schedule a follow-up visit with your personal physician for further evaluation and treatment within 3-5days. If your symptoms persist, change or worsen significantly before you can contact your personal physician then please, without delay, go to the emergency department for further evaluation. Patient Language: Khmer Prescriptions: New pseudoephedrine HCl [12 Hour Decongestant] 120 mg tablet extended release 120 mg PO Q12H PRN (Reason: nasal congestion) Qty: 20 0RF amoxicillin-pot clavulanate 875-125 mg tablet 1 tablet PO Q12H 10 Days Qty: 20 0RF No Action fluconazole 100 mg tablet prochlorperazine maleate 10 mg tablet lorazepam 0.5 mg tablet ascorbic acid (vitamin C) Granules 100 mg PO DAILY vitamin B complex [B Complex-Vitamin B12] Tablet 1 tablet PO DAILY multivitamin Tablet 1 tablet PO DAILY Zyrtec 10 mg capsule 10 mg PO DAILY PRN (Reason: Allergies) aspirin 81 mg tablet,delayed release (DR/EC) 81 mg PO DAILY ibuprofen 200 mg tablet 400 mg PO BID omeprazole magnesium 20 mg tablet,delayed release (DR/EC) 20 mg PO DAILY atorvastatin 10 mg tablet See Rx Instructions .ROUTE .COMPLEX Qty: 90 3RF Dose Instruction: TAKE 1 TABLET BY MOUTH EVERY NIGHT AT BEDTIME Rx Instructions: TAKE 1 TABLET BY MOUTH EVERY NIGHT AT BEDTIME naproxen sodium 220 mg capsule 220 mg PO DAILY losartan 50 mg tablet See Rx Instructions .ROUTE .COMPLEX Qty: 90 1RF Dose Instruction: TAKE 1 TABLET BY MOUTH DAILY Rx Instructions: TAKE 1 TABLET BY MOUTH DAILY Follow-up/Referrals: Khurram Syed DO [Primary Care Provider] - Time of Disposition: 16:31
== END 2025-02-23 16:31 | disposition home or self-care (01) ==
PROVIDERS: Emergency Provider Nurse Practitioner; PCP Internal Medicine
DX: H66.91 Otitis media, unspecified, right ear (principal); J32.9 Chronic sinusitis, unspecified; I10 Essential (primary) hypertension; E66.9 Obesity, unspecified; Z68.24 Body mass index [BMI] 24.0-24.9, adult; G47.30 Sleep apnea, unspecified; Z79.82 Long term (current) use of aspirin
CPT/HCPCS: 99213; A9270; G0463

== ENCOUNTER 2025-04-09 11:10 | Outpatient (CLI) | payer MEDICARE, SELFPAY ==
[2025-04-09 18:14] LABS: Hematocrit 35.0 % (42.0-52.0); Hemoglobin 10.4 g/dL (14.0-18.0); Immature Granulocyte Percent A 0.3 % (0-0.5); Lymphocytes Absolute Auto 0.68 K/mm3 (0.9-3.2); Mean Corpuscular HGB Conc 29.7 g/dl (32-36); Mean Corpuscular Hemoglobin 29.1 pg (26-34); Mean Corpuscular Volume 97.8 fl (80-100); Nucleated Red Blood Cells Absolute Auto 0.000 K/mm3 (0.0-0.012); Nucleated Red Blood Cells Perc 0.0 % (0.0-0.2); Platelet Count Result 248 k/mm3 (150-375); Red Blood Count 3.58 M/mm3 (4.6-6.20); White Blood Count 3.0 K/mm3 (4.5-10.0)
[2025-04-09 18:36] LABS: Anisocytosis 1+; Hypochromasia 1+; Microcytosis 1+ (NORMAL); Ovalocytes 1+; Schistocytes None Seen
[2025-04-09 19:09] LABS: Alanine Aminotransferase 18 U/L (6-50); Albumin Level 3.9 g/dL (3.5-5.1); Alkaline Phosphatase 79 U/L (38-126); Anion Gap 5 mmol/L (4-12); Aspartate Amino Transferase 41 U/L (17-59); Bilirubin,Total 0.6 mg/dL (0.2-1.3); Blood Urea Nitrogen 19 mg/dL (9-20); Calcium 9.0 mg/dL (8.4-10.2); Carbon Dioxide 29 mmol/L (22-30); Chloride 104 mmol/L (98-107); Cholesterol 187 mg/dL (0-200); Estimated Glomerular Filt Rate > 60; Glucose 87 mg/dL (65-110); HDL Direct 30 mg/dL; Potassium 5.2 mmol/L (3.4-5.0); Sodium 138 mmol/L (137-145); Total Protein 6.8 g/dL (6.3-8.2); Triglycerides 207 mg/dL (<150)
[2025-04-09 19:45] LABS: Prostate Specific Antigen 2.0 ng/mL (< OR = 4.0)
== END 2025-04-09 11:11 | disposition home or self-care (01) ==
LOC: ANHGOSHLAB 11:11
PROVIDERS: PCP Nurse Practitioner; Visit Provider Nurse Practitioner
DX: E78.2 Mixed hyperlipidemia (principal); I10 Essential (primary) hypertension; M26.621 Arthralgia of right temporomandibular joint; Z12.5 Encounter for screening for malignant neoplasm of prostate
CPT/HCPCS: 36415; 80053; 80061; 84153; 85025; G0103

== ENCOUNTER 2025-06-17 13:15 | Outpatient (RCR) | payer MEDICARE, SELFPAY ==
--- NOTE | 2025-05-04 10:41 | PTOPEVAL1 ---
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 Pt reports he then had a ground level fall and hospitalized and then had prolonged stay due to blood loss from a ulcer in his mouth. Pt reports progressive weight loss, fatigue and generalized weakness. He states he has had no falls since but still feels very. Pt reports his only current pain is in his jaw. Pt reports he would like to return play golf as that is his main hobby. Reported Pain Level Pain Score 0: Self Report Assessment PT Clinical Summary Patient presents to physical therapy with a primary concern progressive weakness following cancer treatment. Patient demonstrates gross LE weakness, pain, decreased mobility, gait deficits, and decreased flexibility that limit their ability to perform activities of daily living and functional movements. Patient will benefit from skilled physical therapy to address the above listed deficits and return to prior level of function. Home exercise program instructed and written handout provided, exercises tolerated well with no adverse effects to note post-session. Patient was educated on anatomy, prognosis, and plan of care. Plan of Care Interventions Gait Training,Manual Therapy,Neuro Re-education, Therapeutic Activities,Therapeutic Exercise,Other PT Services Indicated Yes Treatment Frequency and 2x week 10 visits Duration These treatments will address the objective and functional deficits as defined above. The patient will be advanced safely and appropriately in order for the patient to progress towards his/her prior level of function. Additional exercises will be introduced and as well as a comprehensive home exercise program upon discharge, if needed, ?to ensure carryover of functional gains achieved in the clinic. This treatment plan has been reviewed and agreement upon by the patient.
--- NOTE | 2025-05-04 10:42 | OPREHPOC ---
Outpatient Therapy Plan of Care This is a Multidisciplinary Plan of Care that may contain components documented by all disciplines (PT, OT, and ST.) PT Problem 1 PT Problem #1 Knowledge Deficit PT Goal 1 Goal / Goal Update 1. Patient to demonstrate independence with HEP for improved self-reliance of symptom management. Target Visit 4 Progress PT Problem 2 PT Problem #2 Impaired Strength PT Goal 1 Goal / Goal Update 1. Patient will demonstrate improved strength of the bilateral hip abductors and extensors to 4+/5 on manual muscle testing in order to improve gait stability and stair negotiation. Target Visit 10 PT Problem 3 PT Problem #3 Impaired Functional Mobility PT Goal 1 Goal / Goal Update 1. Pt will report ability to walk 1.5 miles without excessive fatigue or rest breaks. 2. Pt will complete 14 reps of sit to stands within a 30 sec time period showing improvements in functional strength and endurance. 3. Pt will report initiation of returning to golfing. 4. Patient to score >=20 on the DGI to show improvements in balance and decreased level of assistance needed. Target Visit 10
--- NOTE | 2025-05-18 14:46 | PCPTNOTE ---
Pt called to cancel his appointment due to having a procedure in his eye earlier today.
--- NOTE | 2025-05-27 13:18 | PTOPPROG ---
Assessment and note entered by Yang Paris, PT Evaluation Information Assessment Status Progress ICD-10 Condition Codes (PT) Abnormalities of gait and mobility R26.9,Weakness R53.1 Other ICD-10 Condition Codes ( Z85.878 PT) Subjective Information Pt reports he feels different each day. Some days he feels like he is progressing and others he feels extra weak and fatigued. He reports therapy has seemed to help but he still feels weak and get fatigued very easily. Pt reports continued jaw pain making him want to be inactive. He reports continued difficulty with any prolonged activity as this makes his muscle fatigue to the point where he feels wobbly and unsteady on his feet. Assessment PT Clinical Summary Patient is making steady functional progress following deconditioning secondary to cancer treatment complications and subsequent 5-day hospitalization. Objective functional measures reflect this partial recovery, with a Lower Extremity Functional Scale (LEFS) score of 54/80 and a Dynamic Gait Index (DGI) score of 17/24. The primary barriers to achieving functional independence and returning to PLOF are profound fatigue and resultant dynamic balance deficits and gait instability. The patient's reported wobbliness is directly attributable to the onset of muscle fatigue and decreased endurance as activity demands increase. Despite strength gains in controlled, isolated testing (MMT), these gains are not yet robust enough to consistently support prolonged functional activity. Patient currently requires skilled physical therapy intervention to effectively manage and mitigate fatigue through tailored endurance training, improve muscle power for sustained activity, and enhance dynamic stability to minimize fall risk. The patient?s current functional status remains significantly below his PLOF, necessitating continued skilled intervention. Plan of Care Interventions Gait Training,Manual Therapy,Neuro Re-education, Therapeutic Activities,Therapeutic Exercise,Other PT Services Indicated Yes Treatment Frequency and 2x week 10 visits Duration These treatments will address the objective and functional deficits as defined above. The patient will be advanced safely and appropriately in order for the patient to progress towards his/her prior level of function. Additional exercises will be introduced and as well as a comprehensive home exercise program upon discharge, if needed, ?to ensure carryover of functional gains achieved in the clinic. This treatment plan has been reviewed and agreement upon by the patient.
--- NOTE | 2025-07-15 08:10 | PTOPDC ---
Assessment and note entered by Yang Paris, PT Evaluation Information Assessment Status Discharge - Pt Not Present ICD-10 Condition Codes (PT) Abnormalities of gait and mobility R26.9,Weakness R53.1 Other ICD-10 Condition Codes ( Z85.878 PT) Subjective Information Pt canceled formally re-evaluation due to conflicting appointment. Pt has no active appointments. Assessment PT Clinical Summary Pt completed POC but was not formally re-evaluated . Unable to reschedule at this time. Plan of Care PT Services Indicated No
== END 2025-07-15 09:16 | disposition home or self-care (01) ==
LOC: ANHGOSHPT 13:15
PROVIDERS: PCP Nurse Practitioner; Visit Provider Nurse Practitioner
DX: R53.1 Weakness (principal); Z85.818 Personal history of malignant neoplasm of other sites of lip, oral cavity, and pharynx
CPT/HCPCS: 97110; 97112; 97140; 97161; 97530